=== PATIENT | male | born 1935 | race Caucasian/White ===

== ENCOUNTER 2018-01-31 09:38 | Emergency (ER) | payer MEDICARE, OTHER ==
[2018-01-31 09:48] VITALS: BP 126/77
--- NOTE | 2018-01-31 10:56 | ED Physician Documentation ---
PD HPI HEAD INJURY - Stated complaint Stated Complaint: LEFT EYE LAC - Chief complaint Chief Complaint: Laceration - History obtained from History obtained from: Patient - History of Present Illness Mechanism of head injury: Blow Where head injury occurred: Park Timing - onset: Today Location of injury: Left, Front Associated symptoms: No: LOC, AMS, Amnesia, Nausea / vomiting, Neck pain, Paresthesias, Seizures, Ear drainage, Nasal drainage Symptoms improve with: Rest Symptoms worsen with: Palpation, Movement Contributing factors: No: Anticoagulated Similar symptoms before: Diagnosis (laceration) Recently seen: Not recently seen - Additional information Additional information: 82-year-old male was bringing his boat in for the year and he was using the [place] to bring it in and he was watching the alignment and let go of the handle to the Winch. It was not locked and it swung around and hit him in the left forehead above the left eyebrow. He was not knocked unconscious he denies any pain in his neck and he is not on any blood thinners. He denies any recent illness. Review of Systems Constitutional: denies: Fever Eyes: denies: Decreased vision Ears: denies: Ear pain Nose: denies: Congestion Throat: denies: Sore throat Respiratory: denies: Cough GI: denies: Nausea, Vomiting Musculoskeletal: denies: Neck pain Neurologic: reports: Head injury. denies: Generalized weakness, Focal weakness, Numbness, Difficulty speaking, Confused, Altered mental status, LOC PD PAST MEDICAL HISTORY - Present Medications Home Medications: Ambulatory Orders Medication Instructions Recorded Confirmed Aspirin [Messi] 325 mg PO ONCE 01/31/18 01/31/18 Atenolol [Tenormin] 12.5 mg PO ONCE 01/31/18 01/31/18 Cholecalciferol (Vitamin D3) 1,000 unit PO 01/31/18 [Vitamin D3] Ibuprofen 400 mg PO 01/31/18 Multivitamin [Multiple Vitamins] 1 each PO 01/31/18 Primidone 1 tab ORAL DAILY 01/31/18 01/31/18 traZODone [Desyrel] 50 mg PO HS 01/31/18 01/31/18 - Allergies Allergies/Adverse Reactions: Allergies Allergy/AdvReac Type Severity Reaction Status Date / Time morphine Allergy Emesis Verified 01/31/18 09:49 - Social History Does the pt smoke?: No Smoking Status: Never smoker PD ED PE NORMAL - Vitals Vital signs reviewed: Yes (normal ) - General General: Alert and oriented X 3, No acute distress, Well developed/nourished - HEENT HEENT: PERRL, EOMI, Other (There is a 2.5cm laceration over the left eyebrow laterally ) - Neck Neck: Supple, no meningeal sign, No bony TTP - Respiratory Respiratory: No respiratory distress - Derm Derm: Normal color, Warm and dry, No rash - Extremities Extremities: No deformity, No edema - Neuro Neuro: Alert and oriented X 3, project coordinator rn 2-12 intact, No motor deficit, No sensory deficit, Normal speech Eye Opening: Spontaneous Motor: Obeys Commands Verbal: Oriented GCS Score: 15 - Psych Psych: Normal mood, Normal affect Results - Vitals Vitals: Vital Signs - 24 hr 01/31/18 09:45 Temperature 36.8 C Heart Rate 84 Respiratory 16 Rate Blood Pressure 126/77 O2 Saturation 99 Oxygen O2 Source Room air Procedures - Laceration (location) left eyebrow Length in cm: 2.5 Wound type: Linear, Clean Neurovascular status: Sensory intact, Motor intact, Vascular intact Wound Preparation: Irrigated copiously NS, Wound explored, To the base Skin layer closure: Dermabond Other: Patient tolerated well, No complications, Neurovascular intact, Dressing applied, Tetanus UTD PD MEDICAL DECISION MAKING - ED course Complexity details: considered differential, d/w patient ED course: 82-year-old male with a burst laceration to the left lateral eyebrow has good alignment of his laceration and this is closed with Dermabond. He is up-to-date on his tetanus. - Sepsis Event Vital Signs: Vital Signs - 24 hr 01/31/18 09:45 Temperature 36.8 C Heart Rate 84 Respiratory 16 Rate Blood Pressure 126/77 O2 Saturation 99 Oxygen O2 Source Room air Departure - Departure Disposition: 01 Home, Self Care Clinical Impression: Facial laceration Qualifiers: Encounter type: initial encounter Qualified Code(s): S01.81XA - Laceration without foreign body of other part of head, initial encounter Condition: Stable Instructions: ED Laceration Facial Skin Glue Follow-Up: Your, doctor [Other]
== END 2018-01-31 11:04 | disposition home or self-care (01) ==
LOC: ED 09:38
DX: S01.81XA Laceration without foreign body of other part of head, initial encounter (principal); W19.XXXA Unspecified fall, initial encounter; W22.8XXA Striking against or struck by other objects, initial encounter; Z79.82 Long term (current) use of aspirin
CPT/HCPCS: 12011; 99282